=== PATIENT | female | born 1935 | race Two or more races ===

== ENCOUNTER 2021-07-17 12:02 | Inpatient (IN) | payer MEDICARE, BC ==
--- NOTE | 2021-07-17 12:29 | ED ---
General Adult HPI - General Stated complaint: fall Time Seen by Provider: 07/17/21 12:03 Source: patient, EMS, RN notes reviewed Mode of arrival: EMS Limitations: physical limitation - History of Present Illness Initial comments: This an 86-year-old female presents emergency Department chief complaint of a fall. She mechanical fall. Patient states that she fell onto her left side complains of left shoulder pain, left hip pain. Patient states she had no head injury no loss conscious. Patient denies any blood thinners. Patient states that she has had bilateral knee surgery, right hip surgery she states her surgery was performed here at [facility]. Patient cannot remember the surgeon. - Related Data Allergies Allergy/AdvReac Type Severity Reaction Status Date / Time No Known Allergies Allergy Verified 07/17/21 13:10 Review of Systems ROS Statement: Those systems with pertinent positive or pertinent negative responses have been documented in the HPI. ROS Other: All systems not noted in ROS Statement are negative. Past Medical History Past Medical History: Osteoarthritis (OA) History of Any Multi-Drug Resistant Organisms: None Reported Additional Past Surgical History / Comment(s): RT Hip, bilateral knee replacement, LT breast removal Past Psychological History: No Psychological Hx Reported Smoking Status: Never smoker Past Alcohol Use History: None Reported Past Drug Use History: None Reported General Exam Limitations: physical limitation General appearance: alert, in no apparent distress Head exam: Present: atraumatic, normocephalic, normal inspection Eye exam: Present: normal appearance, PERRL, EOMI. Absent: scleral icterus, conjunctival injection, periorbital swelling Neck exam: Present: normal inspection, full ROM. Absent: tenderness, meningismus Respiratory exam: Present: normal lung sounds bilaterally. Absent: respiratory distress, wheezes, rales, rhonchi, stridor Cardiovascular Exam: Present: regular rate, normal rhythm, normal heart sounds. Absent: systolic murmur, diastolic murmur, rubs, gallop, clicks GI/Abdominal exam: Present: soft, normal bowel sounds. Absent: distended, tenderness, guarding, rebound, rigid Extremities exam: Present: other (Left shoulder tenderness with palpation, patient is in a shoulder sling, arm is neurovascularly intact, right upper extremity on markable. Right hip unremarkable left hip is shortened, mildly rotated, tenderness with palpation.) Neurological exam: Present: alert, oriented X3, reflexes normal. Absent: motor sensory deficit Skin exam: Present: warm, dry, intact, normal color. Absent: rash Course Vital Signs 07/17/21 07/17/21 12:12 13:24 Temperature 97.6 F Pulse Rate 68 76 Respiratory 16 16 Rate Blood Pressure 154/73 129/65 O2 Sat by Pulse 94 L 96 Oximetry Medical Decision Making - Medical Decision Making I did discuss case with Dr. Roberson on-call for orthopedics updated on evidence of hip fracture, left humerus fracture and concerns for metastatic cancer. He did recommend the patient be admitted to medicine given most likely metastatic c ancer and requiring long-term treatment. - Lab Data Result diagrams: 07/17/21 12:34 07/17/21 12:34 Lab Results 07/17/21 07/17/21 07/17/21 Range/Units 12:34 12:34 12:34 WBC 3.7 L (3.8-10.6) k/uL RBC 4.21 (3.80-5.40) m/uL Hgb 12.1 (11.4-16.0) gm/dL Hct 38.4 (34.0-46.0) % MCV 91.2 (80.0-100.0) fL MCH 28.7 (25.0-35.0) pg MCHC 31.4 (31.0-37.0) g/dL RDW 13.5 (11.5-15.5) % Plt Count 197 (150-450) k/uL MPV 7.7 Neutrophils % 70 % Lymphocytes % 19 % Monocytes % 7 % Eosinophils % 1 % Basophils % 1 % Neutrophils # 2.6 (1.3-7.7) k/uL Lymphocytes # 0.7 L (1.0-4.8) k/uL Monocytes # 0.3 (0-1.0) k/uL Eosinophils # 0.1 (0-0.7) k/uL Basophils # 0.0 (0-0.2) k/uL PT 9.6 (9.0-12.0) sec INR 0.9 (<1.2) APTT 23.2 (22.0-30.0) sec Sodium 138 (137-145) mmol/L Potassium 3.9 (3.5-5.1) mmol/L Chloride 103 (98-107) mmol/L Carbon Dioxide 25 (22-30) mmol/L Anion Gap 10 mmol/L BUN 23 H (7-17) mg/dL Creatinine 0.72 (0.52-1.04) mg/dL Est GFR (CKD-EPI)AfAm 87 (>60 ml/min/1.73 sqM) Est GFR (CKD-EPI)NonAf 76 (>60 ml/min/1.73 sqM) Glucose 162 H (74-99) mg/dL Calcium 9.0 (8.4-10.2) mg/dL Total Bilirubin 0.4 (0.2-1.3) mg/dL AST 44 H (14-36) U/L ALT 16 (4-34) U/L Alkaline Phosphatase 124 (38-126) U/L Total Protein 7.8 (6.3-8.2) g/dL Albumin 4.0 (3.5-5.0) g/dL Disposition Clinical Impression: Fall, Fracture of femoral neck, left, Closed fracture of left proximal humerus, Metastatic cancer Disposition: ADMITTED IP TO THIS [facility] Referrals: Elizabeth Yap DO [Primary Care Provider] - 1-2 days Time of Disposition: 13:40
[2021-07-17 12:46] LABS: Basophils % (A) 1 %; Eosinophils # (A) 0.1 k/uL (0-0.7); Eosinophils % (A) 1 %; HCT 38.4 % (34.0-46.0); HGB 12.1 gm/dL (11.4-16.0); Lymphocytes # (A) 0.7 k/uL (1.0-4.8); Lymphocytes % (A) 19 %; MCH 28.7 pg (25.0-35.0); MCHC 31.4 g/dL (31.0-37.0); MCV 91.2 fL (80.0-100.0); Mean Platelet Volume 7.7; Monocytes # (A) 0.3 k/uL (0-1.0); Monocytes % (A) 7 %; Neutrophils # (A) 2.6 k/uL (1.3-7.7); Neutrophils % (A) 70 %; Platelet Count 197 k/uL (150-450); RBC 4.21 m/uL (3.80-5.40); RDW 13.5 % (11.5-15.5); WBC 3.7 k/uL (3.8-10.6)
[2021-07-17 13:00] LABS: INR 0.9 (<1.2); Partial Thromboplastin Time 23.2 sec (22.0-30.0); Prothrombin Time 9.6 sec (9.0-12.0)
[2021-07-17 13:01] LABS: Potassium 3.9 mmol/L (3.5-5.1); Total Bilirubin 0.4 mg/dL (0.2-1.3); Total Protein 7.8 g/dL (6.3-8.2)
[2021-07-17] MEDS ORDERED: ONDANSETRON 4 MG/2 ML VIAL IVP STA (13:08)
[2021-07-17] MEDS ORDERED: fentaNYL (PF) 50 MCG/ML 2 ML AMP IVP ONE ×2 (13:08→13:15)
--- NOTE | 2021-07-17 13:11 | XR ---
EXAMINATION TYPE: XR shoulder limited LT DATE OF EXAM: 07/17/2021 CLINICAL HISTORY: Pain from fall. TECHNIQUE: Three views of the left shoulder are obtained. COMPARISON: None. FINDINGS: Osseous structures are demineralized which is noted to the radiographic sensitivity. There is age-indeterminate suspected acute or subacute comminuted slightly displaced fracture through surgi vaibhav neck left proximal humerus. There is high riding humeral head consistent with chronic rotator cuf f tear. There is sclerosis and subchondral cystic change in the acromion with deformity of the supero lateral humeral head suggesting old trauma or Bankart type lesion or avascular necrosis. Severe narro wing of the glenohumeral joint is present. Visualized lungs show suspicious increased nodular opaciti es. IMPRESSION: As above. Probable acute comminuted slightly displaced and impacted fracture surgical nec k left proximal humerus
--- NOTE | 2021-07-17 13:13 | XR ---
EXAMINATION TYPE: XR chest 1V DATE OF EXAM: 07/17/2021 COMPARISON: NONE HISTORY: Pain after fall injury. TECHNIQUE: Single frontal supine view of the chest is obtained. FINDINGS: Multiple small bilateral nodules are present greatest in the periphery. No suspicious foca l airspace opacity, pleural effusion, or pneumothorax seen. Cardiac silhouette size upper limits of n ormal. Advanced degenerative changes bilateral glenohumeral joints. Rounded densities in the left upp er quadrant of uncertain etiology. Underlying scoliosis is present. IMPRESSION: Diffuse pulmonary metastatic disease. No acute pulmonary process.
--- NOTE | 2021-07-17 13:15 | XR ---
EXAMINATION TYPE: XR Hip LT and AP Pelvis DATE OF EXAM: 07/17/2021 COMPARISON: NONE HISTORY: Pain after fall injury. TECHNIQUE: A single AP view of the pelvis is obtained. Two views of the left hip are obtained. FINDINGS: There is acute slightly displaced transcervical fracture through femoral neck left proximal femur. No hip joint dislocation. Moderate axial joint space loss. Osseous structures are demineralized. Metallic hardware from right hip surgery is partially imaged. T here are old healed fractures of the bilateral superior and inferior pelvic rami. Pubic symphysis is narrowed. Sacroiliac joints grossly preserved. Phleboliths and bilateral vascular calcification in th e pelvis extending into bilateral groin region is seen. IMPRESSION: There is acute slightly displaced and impacted transcervical fracture femoral neck level left proximal femur.
[2021-07-17] MEDS ORDERED: NALOXONE 0.4 MG/ML 1 ML VIAL IV PRN (13:52)
[2021-07-17 14:26] LABS: Appearance,Urine Clear (Clear); Bacteria,Urine Rare /hpf; Bilirubin,Urine Negative (Negative); Blood,Urine Negative (Negative); Color,Urine Light Yellow; Glucose,Urine (UA) Negative (Negative); Hyaline Casts,Urine 1 /lpf (0-2); Ketones,Urine 1+ (Negative); Leukocyte Esterase,Urine Moderate (Negative); Mucus,Urine Rare /hpf; Nitrite,Urine Negative (Negative); Protein,Urine Trace (Negative); RBC,Urine 4 /hpf (0-5); Specific Gravity,Urine 1.012 (1.001-1.035); Squamous Epithelial Cell,Urine <1 /hpf (0-4); Urobilinogen,Urine <2.0 mg/dL (<2.0); WBC,Urine 6 /hpf (0-5)
[2021-07-17] MEDS: HYDROmorphone 0.5 MG/0.5 ML SYRINGE IVP PRN ×2 (15:47→23:52)
[2021-07-17] MEDS ORDERED: HYDROcodone/APAP 5-325MG 1 EACH TAB PO PRN (16:45)
--- NOTE | 2021-07-17 17:17 | HP ---
HISTORY AND PHYSICAL CHIEF COMPLAINTS: Fall and fracture. HISTORY OF PRESENT ILLNESS: This 86-year-old woman with a past medical history of DJD and history of rheumatoid arthritis was walking, and the patient lost her balance. She apparently had a fall and had a left hip femur fracture as well as a left humerus fracture. She was admitted for evaluation and treatment. The patient apparently was complaining of left hip pain for past several days. Patient also has significant rheumatoid arthritis with deformities. The chest x-ray showed bilateral nodules suggestive of possible malignancy versus rheumatoid arthritis. There is no history of any fever, rigor or chills. The patient had some vomiting after pain medications. PAST MEDICAL HISTORY: Rheumatoid arthritis, DJD, history of breast cancer. MEDICATIONS: Home medications are reviewed and include zinc. Doses and the rest of the medications are reviewed. ALLERGIES: NONE. FAMILY HISTORY: No history of heart disease or strokes in the family. SOCIAL HISTORY: No history of smoking. No history of alcohol intake. REVIEW OF SYSTEMS: Fourteen-point review of systems negative except as mentioned earlier. PHYSICAL EXAMINATION: Pulse is 80, blood pressure 131/60, respirations 16, pulse ox 94% on room air. HEENT: Conjunctivae normal. NECK: No jugular venous distention. CARDIOVASCULAR: S1, S2 muffled. RESPIRATION: Breath sounds diminished at the bases. A few scattered rhonchi and crackles. ABDOMEN: Soft, nontender. LEGS: Status post fracture on the left side. NERVOUS SYSTEM: No focal deficit except for the pain caused by fractures. SKIN: No ulcer, rash, bleeding. JOINTS: No active deforming arthropathy. LABS: Reviewed. WBC 3.7. ASSESSMENT: 1. Fall and fracture of the left humerus and femur. 2. Bilateral nodules on the chest x-ray, possibly metastatic, possibly rheumatoid. 3. History of rheumatoid arthritis deformities. 4. Degenerative joint disease. 5. History of breast cancer. RECOMMENDATIONS AND DISCUSSION: In this 86-year-old woman who presented with multiple complex medical issues, we will monitor the patient closely. Pain management. Symptomatic treatment for vomiting. I would also recommend a D-dimer; and if the D-dimer is positive, I would recommend a CT angio of the chest. Otherwise, we will perform CT chest without any contrast and also obtain a hematology/oncology evaluation. I also recommend testing for KYA as well as rheumatoid factor and sedimentation rate. Overall prognosis is guarded because of multiple complex medical issues. Discussed with the family at the bedside. Further recommendations to follow. The patient will be cleared for surgery with some extra risk if needed. The patient is saturating normally. I would also recommend an EKG and troponin to complete the workup at this time. Further recommendations to follow. DONAVAN / MARION: [id number] /
[2021-07-17] MEDS: PANTOPRAZOLE 40 MG/10 ML VIAL IVP SCH (17:38)
--- NOTE | 2021-07-17 21:18 | CT ---
EXAMINATION TYPE: CT chest angio for PE CT DLP: 244.8 mGycm, Automated exposure control for dose reduction was used. DATE OF EXAM: 07/17/2021 9:00 PM COMPARISON: Chest radiograph from same day. CLINICAL INDICATION:Female, 86 years old with history of positive d dimer; elevated D-DIMER. TECHNIQUE/CONTRAST: CTA scan of the thorax is performed with IV Contrast, patient injected with 80ml mL of Isovue 370, pu lmonary embolism protocol. MIP images are created and reviewed. FINDINGS: Pulmonary Artery: There is no evidence for a filling defect within the pulmonary vasculature to sugge st acute pulmonary embolism. The pulmonary artery is of normal size. Lungs/Pleura: Diffuse pulmonary metastatic disease with innumerable nodules seen throughout the lungs Airway: Large airways are patent. Heart: Heart is within normal limits for size.. Vasculature: Mediastinum: No gross evidence of adenopathy. Musculoskeletal: No acute osseous abnormalities Soft Tissues: Multiple enlarged right axillary lymph nodes measuring up to 16 mm are present. Right b reast mass measuring 35 x 2.2 cm. Right internal mammary lymph node measuring 4 mm in short axis. The left breast is absent. Lower neck: No significant findings. 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 Additiona l smaller peripherally calcified aneurysms also possible but suboptimally evaluated measuring 7 and 7 mm. This is suboptimally evaluated given motion. Multiple gallstones are seen within the gallbladder lumen. There are 2 bilateral renal arteries. IMPRESSION: 1. No evidence of pulmonary embolism. 2. Right breast mass, right axilla lymphadenopathy, right internal mammary chain lymph nodes, diffuse pulmonary nodules concerning for primary breast malignancy with metastatic disease. Correlation with mammography at outside institutions and tissue sampling is recommended. 3. Splenic artery aneurysm with peripheral calcification which are selectively evaluated on this exam due to motion. Largest measuring up to [id number] x 12 mm.
[2021-07-17] MEDS: ONDANSETRON 4 MG/2 ML VIAL IVP PRN (21:28)
[2021-07-17] MEDS: HEPARIN SODIUM,PORCINE/PF 5,000 UNIT/0.5 ML SYRINGE SQ SCH (21:28)
[2021-07-17] MEDS ORDERED: TEMAZEPAM 15 MG CAP PO PRN (22:33)
[2021-07-18] MEDS: HYDROmorphone 0.5 MG/0.5 ML SYRINGE IVP PRN ×3 (04:52→13:48)
[2021-07-18] MEDS: HEPARIN SODIUM,PORCINE/PF 5,000 UNIT/0.5 ML SYRINGE SQ SCH ×2 (08:19→19:28)
[2021-07-18 09:15] LABS: Basophils # (A) 0.03 X 10*3/uL (0.00-0.10); Basophils % (A) 0.9 %; Eosinophils # (A) 0.02 X 10*3/uL (0.04-0.35); Eosinophils % (A) 0.6 %; HCT 36.6 % (37.2-46.3); HGB 11.3 g/dL (12.0-15.0); Immature Grans, Automated 0.3 %; Lymphocytes # (A) 1.33 X 10*3/uL (0.90-5.00); Lymphocytes % (A) 39.9 %; MCH 27.8 pg (27.0-32.0); MCHC 30.9 g/dL (32.0-37.0); MCV 90.1 fL (80.0-97.0); Monocytes # (A) 0.68 X 10*3/uL (0.20-1.00); Monocytes % (A) 20.4 %; NRBC Per 100 WBC 0 /100 WBCS (0.0-0.0); Neutrophils # (A) 1.26 X 10*3/uL (1.80-7.70); Neutrophils % (A) 37.9 %; Platelet Count 182 X 10*3/uL (140-440); RBC 4.06 X 10*6/uL (4.10-5.20); RDW 13.4 % (11.5-14.5); WBC 3.33 X 10*3/uL (4.50-10.00)
[2021-07-18 09:32] LABS: African American GFR (CKD) 76.3 (60.0-200.0); Albumin 3.6 g/dL (3.8-4.9); Albumin/Globulin Ratio 1.09 (1.60-3.17); Anion Gap 12.4 mmol/L (10.00-18.00); BUN/Creat Ratio 27.63 Ratio (12.00-20.00); Blood Urea Nitrogen 22.1 mg/dL (9.0-27.0); Calcium 9.2 mg/dL (8.7-10.3); Carbon Dioxide 24.6 mmol/L (20.0-27.5); Globulin 3.3 g/dL (1.6-3.3); Non-African American GFR(CKD) 65.8 (60.0-200.0); Potassium 4.4 mmol/L (3.5-5.5); Total Bilirubin 0.3 mg/dL (0.30-1.20); Total Protein 6.9 g/dL (6.2-8.2)
--- NOTE | 2021-07-18 11:09 | P.CNOR ---
History of Present Illness - HPI Consult date: 07/18/21 History of present illness: This is an 86-year-old female who is admitted after a fall. Patient's past medical history is significant for breast cancer and rheumatoid arthritis. Patient is seen and evaluated at bedside today. Patient states that she has had left hip pain for the last several days and normally ambulates with a walker. P eamon states that on 07/17/2021 she was walking a short distance in her house without a walker when her left hip gave out and she fell. X-rays in the emergency room revealed left hip fracture and left proximal humerus fracture. Patient states that her pain is well controlled this morning. Patient denies any fever/chills, numbness, weakness, tingling, abdominal pain, shortness of breath or chest pain. Review of Systems See HPI. Past Medical History Past Medical History: Osteoarthritis (OA) History of Any Multi-Drug Resistant Organisms: None Reported Additional Past Surgical History / Comment(s): RT Hip, bilateral knee replacement, LT breast removal Past Psychological History: No Psychological Hx Reported Smoking Status: Never smoker Past Alcohol Use History: None Reported Past Drug Use History: None Reported Medications and Allergies Home Medications Medication Instructions Recorded Confirmed Type Ascorbic Acid [Vitamin C] 1,000 mg PO DAILY 07/17/21 07/17/21 History Cholecalciferol (Vitamin D3) 75 mcg PO DAILY 07/17/21 07/17/21 History [Vitamin D3 (3000 Iu)] Turmeric Root Extract [Turmeric] 500 mg PO DAILY 07/17/21 07/17/21 History Zinc 50 mg PO DAILY 07/17/21 07/17/21 History Allergies Allergy/AdvReac Type Severity Reaction Status Date / Time No Known Allergies Allergy Verified 07/17/21 14:21 Physical Examination On exam patient is resting comfortably in bed in no acute distress. Patient is alert and oriented 3. Exam of the left upper extremity: There is tenderness to palpation over the left shoulder. There is mild swelling. Skin is intact. The left upper extremity is warm and well perfused. Sensation intact. Radial pulse is 2+. Neurovascular status and circulatory status are intact. Exam of the left lower extremity: There is tenderness to palpation over the left hip. Limited range of motion of the left hip secondary to pain. There is minimal soft tissue swelling. Skin is intact. Calf is soft and nontender to palpation. Dorsalis pedis pulse is 2+. Sensation intact. Neurovascular status and circulatory status are intact. Exams of the right upper extremity and right lower extremity are within normal limits. Results X-rays of the left shoulder dated 07/17/2021 reveal a comminuted fracture of the left proximal humerus. X-rays of the left hip and pelvis dated 07/17/2021 reveal a left femoral neck fracture. A chest CTA reveals a right breast mass, right axilla lymphadenopathy, right internal mammary chain lymph nodes, diffuse pulmonary nodules concerning for primary breast malignancy with metastatic disease. Correlation with mammography at outside institutions and tissue sampling is recommended. - Labs Labs: Abnormal Lab Results - Last 24 Hours (Table) 07/17/21 07/17/21 07/17/21 Range/Units 12:34 12:34 14:05 WBC 3.7 L (3.8-10.6) k/uL RBC (4.10-5.20) X 10*6/uL Hgb (12.0-15.0) g/dL Hct (37.2-46.3) % MCHC (32.0-37.0) g/dL Neutrophils # (1.80-7.70) X 10*3/uL Lymphocytes # 0.7 L (1.0-4.8) k/uL Eosinophils # (0.04-0.35) X 10*3/uL ESR (0-20) mm/hr D-Dimer (<0.60) mg/L FEU BUN 23 H (7-17) mg/dL BUN/Creatinine Ratio (12.00-20.00) Ratio Glucose 162 H (74-99) mg/dL AST 44 H (14-36) U/L Albumin (3.8-4.9) g/dL Albumin/Globulin Ratio (1.60-3.17) g/dL Urine Protein Trace H (Negative) Urine Ketones 1+ H (Negative) Ur Leukocyte Esterase Moderate H (Negative) Urine WBC 6 H (0-5) /hpf Urine Bacteria Rare H (None) /hpf Urine Mucus Rare H (None) /hpf 07/17/21 07/17/21 07/18/21 Range/Units 16:58 16:58 05:42 WBC 3.33 L (3.8-10.6) k/uL RBC 4.06 L (4.10-5.20) X 10*6/uL Hgb 11.3 L (12.0-15.0) g/dL Hct 36.6 L (37.2-46.3) % MCHC 30.9 L (32.0-37.0) g/dL Neutrophils # 1.26 L (1.80-7.70) X 10*3/uL Lymphocytes # (1.0-4.8) k/uL Eosinophils # 0.02 L (0.04-0.35) X 10*3/uL ESR 72 H (0-20) mm/hr D-Dimer 30.14 H (<0.60) mg/L FEU BUN (7-17) mg/dL BUN/Creatinine Ratio (12.00-20.00) Ratio Glucose (74-99) mg/dL AST (14-36) U/L Albumin (3.8-4.9) g/dL Albumin/Globulin Ratio (1.60-3.17) g/dL Urine Protein (Negative) Urine Ketones (Negative) Ur Leukocyte Esterase (Negative) Urine WBC (0-5) /hpf Urine Bacteria (None) /hpf Urine Mucus (None) /hpf 07/18/21 Range/Units 05:42 WBC (3.8-10.6) k/uL RBC (4.10-5.20) X 10*6/uL Hgb (12.0-15.0) g/dL Hct (37.2-46.3) % MCHC (32.0-37.0) g/dL Neutrophils # (1.80-7.70) X 10*3/uL Lymphocytes # (1.0-4.8) k/uL Eosinophils # (0.04-0.35) X 10*3/uL ESR (0-20) mm/hr D-Dimer (<0.60) mg/L FEU BUN (7-17) mg/dL BUN/Creatinine Ratio 27.63 H (12.00-20.00) Ratio Glucose (74-99) mg/dL AST 36 H (14-36) U/L Albumin 3.6 L (3.8-4.9) g/dL Albumin/Globulin Ratio 1.09 L (1.60-3.17) g/dL Urine Protein (Negative) Urine Ketones (Negative) Ur Leukocyte Esterase (Negative) Urine WBC (0-5) /hpf Urine Bacteria (None) /hpf Urine Mucus (None) /hpf H & H 07/17/21 07/18/21 Range/Units 12:34 05:42 Hgb 12.1 11.3 L (11.4-16.0) gm/dL Hct 38.4 36.6 L (34.0-46.0) % Coagulation 07/17/21 Range/Units 12:34 INR 0.9 (<1.2) Result Diagrams: 07/18/21 05:42 07/18/21 05:42 Assessment and Plan Assessment: History of breast cancer with possible metastatic disease versus rheumatoid arthritis. (1) Closed fracture of left proximal humerus Current Visit: Yes Status: Acute Code(s): S42.202A - UNSP FRACTURE OF UPPER END OF LEFT HUMERUS, INIT FOR CLOS FX SNOMED Code(s): 90947699 (2) Fall Current Visit: Yes Status: Acute Code(s): W19.XXXA - UNSPECIFIED FALL, INITIAL ENCOUNTER SNOMED Code(s): 7249225 (3) Fracture of femoral neck, left Current Visit: Yes Status: Acute Code(s): S72.002A - FRACTURE OF UNSP PART OF NECK OF LEFT FEMUR, INIT SNOMED Code(s): 6211626 Plan: 1. Patient is NPO today. 2. X-rays are reviewed revealing a left femoral neck fracture. Options are discussed with the patient at bedside today. Planning for left hip hemiarthroplasty later today pending medical clearance and patient consent. 3. Recommend an arm sling to the left upper extremity when the patient is out of bed. No surgical intervention planned for the left shoulder. 4. Appreciate input from internal medicine and heme/onc.
[2021-07-18] MEDS: PANTOPRAZOLE 40 MG/10 ML VIAL IVP SCH (12:17)
--- NOTE | 2021-07-18 12:30 | P.CONS ---
History of Present Illness - Reason for Consult Consult date: 07/18/21 Concern of malignancy Requesting physician: Juan Alberto Brambila - History of Present Illness Patient is an 86 year old female presenting with fracture to femur, during work- up was found to have breast mass and axilla adenopathy concerning for metastatic disease this was on right side. Last year se underwent mastectomy for breast cancer of the left breast. Orthopedics is following and planning for stabilizarion if this felt to be pathological fracture (xray did not show suggestions of this) will ask for tissue biopsy to be obtained. If unable and patient would like to explore what treatment options are present then axilla or breast mass biopsy will be performed and breast cancer markers ran. Review of Systems All systems: negative Constitutional: Reports as per HPI Past Medical History Past Medical History: Osteoarthritis (OA) History of Any Multi-Drug Resistant Organisms: None Reported Additional Past Surgical History / Comment(s): RT Hip, bilateral knee replacement, LT breast removal Past Psychological History: No Psychological Hx Reported Smoking Status: Never smoker Past Alcohol Use History: None Reported Past Drug Use History: None Reported Medications and Allergies Home Medications Medication Instructions Recorded Confirmed Type Ascorbic Acid [Vitamin C] 1,000 mg PO DAILY 07/17/21 07/17/21 History Cholecalciferol (Vitamin D3) 75 mcg PO DAILY 07/17/21 07/17/21 History [Vitamin D3 (3000 Iu)] Turmeric Root Extract [Turmeric] 500 mg PO DAILY 07/17/21 07/17/21 History Zinc 50 mg PO DAILY 07/17/21 07/17/21 History Allergies Allergy/AdvReac Type Severity Reaction Status Date / Time No Known Allergies Allergy Verified 07/17/21 14:21 Physical Exam Vitals: Vital Signs Temp Pulse Pulse Resp BP BP Pulse Ox 07/18/21 06:50 98.5 F 63 17 117/54 90 L 07/18/21 02:00 98.2 F 60 16 127/60 90 L 07/17/21 20:35 98.5 F 65 18 123/51 91 L 07/17/21 19:30 98.2 F 69 16 120/59 95 07/17/21 17:38 86 18 131/61 07/17/21 15:55 80 16 113/75 95 07/17/21 14:52 80 16 131/61 94 L 07/17/21 13:24 76 16 129/65 96 Intake and Output 07/17/21 07/18/21 07/18/21 22:59 06:59 14:59 Output Total 500 Balance -500 Output: Urine 500 Other: Voiding Method Indwelling Catheter # Bowel Movements 0 Weight 52.163 kg - Constitutional General appearance: cooperative - EENT ENT: hard of hearing, NA/AT - Neck Neck: lymphadenopathy, normal ROM - Respiratory Respiratory: bilateral: diminished - Cardiovascular Rhythm: regularly irregular - Gastrointestinal General gastrointestinal: soft - Integumentary Integumentary: pale - Musculoskeletal Fracture left hip - Psychiatric Psychiatric: A&O x's 3 Results CBC & Chem 7: 07/19/21 05:42 07/18/21 05:42 Labs: Abnormal Lab Results - Last 24 Hours (Table) 07/17/21 07/17/21 07/17/21 Range/Units 12:34 12:34 14:05 WBC 3.7 L (3.8-10.6) k/uL RBC (4.10-5.20) X 10*6/uL Hgb (12.0-15.0) g/dL Hct (37.2-46.3) % MCHC (32.0-37.0) g/dL Neutrophils # (1.80-7.70) X 10*3/uL Lymphocytes # 0.7 L (1.0-4.8) k/uL Eosinophils # (0.04-0.35) X 10*3/uL ESR (0-20) mm/hr D-Dimer (<0.60) mg/L FEU BUN 23 H (7-17) mg/dL BUN/Creatinine Ratio (12.00-20.00) Ratio Glucose 162 H (74-99) mg/dL AST 44 H (14-36) U/L Albumin (3.8-4.9) g/dL Albumin/Globulin Ratio (1.60-3.17) g/dL Urine Protein Trace H (Negative) Urine Ketones 1+ H (Negative) Ur Leukocyte Esterase Moderate H (Negative) Urine WBC 6 H (0-5) /hpf Urine Bacteria Rare H (None) /hpf Urine Mucus Rare H (None) /hpf 07/17/21 07/17/21 07/18/21 Range/Units 16:58 16:58 05:42 WBC 3.33 L (3.8-10.6) k/uL RBC 4.06 L (4.10-5.20) X 10*6/uL Hgb 11.3 L (12.0-15.0) g/dL Hct 36.6 L (37.2-46.3) % MCHC 30.9 L (32.0-37.0) g/dL Neutrophils # 1.26 L (1.80-7.70) X 10*3/uL Lymphocytes # (1.0-4.8) k/uL Eosinophils # 0.02 L (0.04-0.35) X 10*3/uL ESR 72 H (0-20) mm/hr D-Dimer 30.14 H (<0.60) mg/L FEU BUN (7-17) mg/dL BUN/Creatinine Ratio (12.00-20.00) Ratio Glucose (74-99) mg/dL AST (14-36) U/L Albumin (3.8-4.9) g/dL Albumin/Globulin Ratio (1.60-3.17) g/dL Urine Protein (Negative) Urine Ketones (Negative) Ur Leukocyte Esterase (Negative) Urine WBC (0-5) /hpf Urine Bacteria (None) /hpf Urine Mucus (None) /hpf 07/18/21 Range/Units 05:42 WBC (3.8-10.6) k/uL RBC (4.10-5.20) X 10*6/uL Hgb (12.0-15.0) g/dL Hct (37.2-46.3) % MCHC (32.0-37.0) g/dL Neutrophils # (1.80-7.70) X 10*3/uL Lymphocytes # (1.0-4.8) k/uL Eosinophils # (0.04-0.35) X 10*3/uL ESR (0-20) mm/hr D-Dimer (<0.60) mg/L FEU BUN (7-17) mg/dL BUN/Creatinine Ratio 27.63 H (12.00-20.00) Ratio Glucose (74-99) mg/dL AST 36 H (14-36) U/L Albumin 3.6 L (3.8-4.9) g/dL Albumin/Globulin Ratio 1.09 L (1.60-3.17) g/dL Urine Protein (Negative) Urine Ketones (Negative) Ur Leukocyte Esterase (Negative) Urine WBC (0-5) /hpf Urine Bacteria (None) /hpf Urine Mucus (None) /hpf CT scan - chest: report reviewed Assessment and Plan (1) Fracture of femoral neck, left Current Visit: Yes Status: Acute Code(s): S72.002A - FRACTURE OF UNSP PART OF NECK OF LEFT FEMUR, INIT SNOMED Code(s): 8202947 (2) Mass of right breast Narrative/Plan: Prominent mass with rt axillary adenopathy, highly s/o breast ca. More likely new primary, and likely source if lung findings indicate metastatic disease. D/w pt and family in detail. She does not want any chemo or RT. I discussed doing hormonal manipulation, which is generally well tolerated, if the tumor is ER/RI +ve. To confirm the same, she would need a biopsy. At this time she is undecided and would like to get through the L hip surgery 1st. We will ask ORtho to send a sample for pathology. If this shows malignancy, then breast biopsy may not be required. If this is negative, she will consider breast biopsy Current Visit: Yes Status: Acute Code(s): N63.10 - UNSPECIFIED LUMP IN THE RIGHT BREAST, UNSPECIFIED QUADRANT SNOMED Code(s): 43638620 Plan: Tisue biopsy whether from ortho surgery if felt to be pathological and/or Left breast mass/Axilla for receptors Breast cancer markers will be ran bone scan needed and further imaging for full staging Dr. Alonso: I have completed the full history and physical and developed the above impression and plan, agree with dictation, dictated as a scribe.ri Dr. Garcia had a long discussion with patient and daughters.
[2021-07-18] MEDS: ONDANSETRON 4 MG/2 ML VIAL IVP PRN (14:52)
[2021-07-18] MEDS ORDERED: NALOXONE 0.4 MG/ML 1 ML VIAL IV PRN (16:57)
[2021-07-18] MEDS ORDERED: MAGNESIUM HYDROXIDE 2,400 MG/10 ML CUP PO PRN (16:57)
--- NOTE | 2021-07-18 17:32 | PN ---
PROGRESS NOTE DATE OF SERVICE: 07/18/2021 This 86-year-old woman who was admitted with a fall and closed fracture of the left proximal humerus is scheduled to undergo intramedullary fixation today. The patient also had a fracture of the femoral neck, which is being treated conservatively at this time. The patient also has a history of breast cancer. Multiple lung nodules are noted in the right breast also noted. Hematology/Oncology is also being consulted. The patient is having severe pain. Past medical history reviewed. REVIEW OF SYSTEMS: Fourteen-point review of systems negative except as mentioned earlier. CURRENT MEDICATIONS: Current medications were reviewed at length, which include heparin, Dilaudid and the rest of the medications. PHYSICAL EXAMINATION: Pulse is 60, blood pressure 126/60, respirations 16, temperature 98.2. HEENT: Conjunctivae normal. NECK: No jugular venous distention. CARDIOVASCULAR: S1, S2 muffled. RESPIRATION: A few scattered rhonchi. Right breast mass. LEGS: No edema. No swelling. Left leg painful. NERVOUS SYSTEM: No focal deficit. SKIN: No ulcer, rash, bleeding. JOINTS: As mentioned earlier. LABS: Reviewed. WBC 8.3, hemoglobin 11.3. KYA is negative and rheumatoid factor is 15. ASSESSMENT: 1. Fall and fracture of the left humerus and left femur for intramedullary nailing. 2. Bilateral lung nodules on chest x-ray; possibly metastatic malignancy with a right breast mass. 3. History rheumatoid arthritis deformities. 4. Degenerative joint disease. 5. History of breast cancer. RECOMMENDATIONS AND DISCUSSION: I recommend to continue current medications, continue with the monitoring, symptomatic treatment. Pain management. Closely follow with Hematology/Oncology as well as Orthopedic Surgery. Will monitor closely. Ensure oxygenation. Overall prognosis is guarded, which I discussed at length with the patient and the patient's family at the bedside. Further recommendations to follow. Please see orders for further details. MMODL / IJN: [id number] /
[2021-07-18] MEDS: SODIUM CHLORIDE 0.9% 1,000 ML IV SCH (18:14)
[2021-07-18] MEDS ORDERED: SODIUM CHLORIDE 0.9% 1,000 ML IV ONE (20:32)
[2021-07-18] MEDS ORDERED: SODIUM CHLORIDE 0.9% 100 ML with ceFAZolin 2 GM IV ONE ×2 (20:40)
--- NOTE | 2021-07-18 21:25 | P.OP ---
Date of Procedure: 07/18/21 Preoperative Diagnosis: Subcapital fracture left hip Postoperative Diagnosis: Subcapital fracture left hip Procedure(s) Performed: Hemiarthroplasty left hip Implants: Chang and nephew Polarstem size 3 standard collared Chang & Nephew tandem unipolar, 43 mm Chang & Nephew tandem unipolar 12/14 taper sleeve, -3 mm All components were press-fit. Anesthesia: spinal Surgeon: Juan Alberto Roberson Paster Hat Lining #1: Orquidea Sampson Estimated Blood Loss (ml): 50 Pathology: other (Femoral head and reamings) Condition: stable Disposition: PACU Indications for Procedure: This is an 86-year-old female that fell at home and sustained a subcapital fracture of her left hip. After discussing the surgical nonsurgical treatment options with her and her family at length, I recommended a left hip hemiarthroplasty and informed consent was obtained. Operative Findings: The operative findings are consistent with a left hip subcapital fracture Description of Procedure: Patient was seen and evaluated in the preoperative area, consent was reviewed and the operative site was marked with a skin marker. Patient was then brought to the operating room and given 2 g of Ancef intravenously. A spinal anesthetic was administered by the anesthesia department. Patient was then placed in a lateral decubitus position and held with a Montral hip positioner. The bony prominences were well-padded and an axillary roll was placed. The hip was then prepped and draped in the usual sterile fashion. A universal timeout was then performed which confirmed the patient's name, surgical site, ALLERGIES, and procedure. A standard anterolateral approach the hip was performed. Skin and subcutaneous tissues were sharply incised with an incision centered over the tip of the greater trochanter. The incision was carefully dissected down to the fascia. The fascia was then split in line with skin incision and a Charnley retractor was gently placed. The abductors were then identified, and the anterior one third of the abductors were released off the trochanter and one large sleeve. The fracture hematoma was evacuated and the proximal femur was exposed by externally rotating the femur. The fracture site was readily visualized. Next, using an osteotomy guide, the proximal femur was osteotomized at the appropriate level of the above the lesser trochanter. This bone was then removed. On gross visualization of the bone, did not appear to be any suspicious areas for metastatic disease. The bone will be sent for pathologic diagnosis Attention was then turned to the femoral head. Using a corkscrew, the femoral head was removed from the acetabulum without incident. The acetabulum was inspected, and found to have no significant arthrosis. Femoral head was then measured. Attention was then redirected to the femur. Proximal femur was re-exposed and a box osteotome was used to lateralize the proximal femur. A almond blancher hand was then used to locate the femoral canal. Sequential broaching was then performed to the appropriate size. The calcar was then planed and trial head and neck were placed. The hip was then gently reduced. Leg lengths were checked and found to be equal. Hip was then taken through a full range of motion was stable throughout. The hip was then gently dislocated with the aid of a bone hook. The trial head and neck were then removed. The femoral broach was then inspected and found to have a secure fit. The broach was then removed. The hip was then copiously irrigated with antibiotic solution with a pulse lavage. Components were then opened and the femoral stem was then impacted into the proximal femur. The trunnion was cleaned and dried, and the femoral head and neck were then impacted. Hip was again gently reduced. Again leg lengths were checked and found to be equal, and the hip was taken through a full range of motion and found to be stable. The hip was again irrigated with pulsatile lavage, then followed by the Irrrisept solution. The abductors were then repaired through drill holes to the bone to the greater trochanter, utilizing #5 Ethibond suture. Next the fascia was repaired with #2 strata fix suture. The subcutaneous tissue was then repaired with 3-0 Vicryl. The subcuticular tissue was then repaired with 3-0 strata fix suture. Skin was then closed with Exofin skin glue. A sterile dressing was then applied and the patient was transported to the recovery room in stable condition. Paster Hat Lining NEGAR Aburto was required due to the complexity of surgery the need for skilled surgical clinical reviewer. She assisted with positioning the patient, draping the patient, retraction during the surgery, and closure of the wound.
[2021-07-18] MEDS ORDERED: LACTATED RINGERS 1,000 ML IV ONE ×2 (21:52)
[2021-07-18] MEDS ORDERED: ONDANSETRON 4 MG/2 ML VIAL IVP ONE (22:03)
[2021-07-18] MEDS ORDERED: diphenhydrAMINE 50 MG/ML 1 ML VIAL IVP ONE (22:07)
[2021-07-18] MEDS ORDERED: HYDROmorphone 0.5 MG/0.5 ML SYRINGE IVP ONE ×2 (22:08→22:21)
--- NOTE | 2021-07-18 22:18 | XR ---
EXAMINATION TYPE: XR Hip Limited LT DATE OF EXAM: 07/18/2021 COMPARISON: NONE HISTORY: Hip pain TECHNIQUE: Single view FINDINGS: There is left hip prosthesis. Components are in anatomic position. There is vascular calcif ication. No fracture seen. This probably a chip fracture of the greater trochanter. IMPRESSION: Left hip prosthesis in good position.
[2021-07-18] MEDS: SENNOSIDES-DOCUSATE SODIUM 1 EACH TAB PO SCH (23:19)
[2021-07-19] MEDS: PANTOPRAZOLE 40 MG/10 ML VIAL IVP SCH ×3 (00:14→21:03)
[2021-07-19] MEDS: KETOROLAC 15 MG/ML 1 ML VIAL IVP PRN ×2 (05:44→14:44)
[2021-07-19] MEDS: ONDANSETRON 4 MG/2 ML VIAL IVP PRN ×3 (05:45→21:04)
[2021-07-19] MEDS: HEPARIN SODIUM,PORCINE/PF 5,000 UNIT/0.5 ML SYRINGE SQ SCH ×2 (07:56→21:03)
[2021-07-19 08:39] LABS: HCT 32.7 % (37.2-46.3); HGB 10.1 g/dL (12.0-15.0); MCH 28.4 pg (27.0-32.0); MCHC 30.9 g/dL (32.0-37.0); MCV 91.9 fL (80.0-97.0); Mean Platelet Volume 10.5 fL (9.5-12.2); NRBC Per 100 WBC 0 /100 WBCS (0.0-0.0); Platelet Count 181 X 10*3/uL (140-440); RBC 3.56 X 10*6/uL (4.10-5.20); RDW 13.4 % (11.5-14.5); WBC 3.56 X 10*3/uL (4.50-10.00)
--- NOTE | 2021-07-19 09:21 | P.PN ---
Subjective Progress Note Date: 07/19/21 Principal diagnosis: Left hip fracture. Left proximal humerus fracture. Status post hemiarthroplasty left hip. This is a pleasant 78-year-old female who is postop day #1 status post hemiarthroplasty of the left hip. She has no new complaints or concerns today other than some mild nausea.. Vital signs are stable. Objective - Vital Signs Vital signs: Vital Signs Temp 98.1 F 07/19/21 07:52 Pulse 77 07/19/21 07:52 Resp 16 07/19/21 07:52 BP 105/59 07/19/21 07:52 Pulse Ox 96 07/19/21 07:52 FiO2 Intake & Output 07/18/21 07/19/21 07/19/21 18:59 06:59 18:59 Intake Total 900 Output Total 950 Balance -50 Intake: IV 900 Output: Urine 900 Estimated Blood Loss 50 Other: Voiding Method Indwelling Catheter Indwelling Catheter # Bowel Movements 0 - Exam This is a pleasant 86-year-old female in no acute distress. She is alert and oriented 3. Exam of the upper extremities reveals sling in place on the left arm. Range of motion of the shoulder not tested today. Satisfactory finger motion without difficulty or pain. Exam of the left hip reveals that her dressing is clean, dry and intact. Minimal swelling about the left hip and thigh. Full foot and ankle motion without difficulty or pain. Neurovascular status to the lower extremity is intact. - Labs CBC & Chem 7: 07/19/21 05:42 07/18/21 05:42 Labs: Abnormal Lab Results - Last 24 Hours (Table) 07/18/21 07/18/21 07/19/21 Range/Units 05:42 05:42 05:42 WBC 3.33 L 3.56 L (4.50-10.00) X 10*3/uL RBC 4.06 L 3.56 L (4.10-5.20) X 10*6/uL Hgb 11.3 L 10.1 L (12.0-15.0) g/dL Hct 36.6 L 32.7 L (37.2-46.3) % MCHC 30.9 L 30.9 L (32.0-37.0) g/dL Neutrophils # 1.26 L (1.80-7.70) X 10*3/uL Eosinophils # 0.02 L (0.04-0.35) X 10*3/uL BUN/Creatinine Ratio 27.63 H (12.00-20.00) Ratio AST 36 H (13-35) U/L Albumin 3.6 L (3.8-4.9) g/dL Albumin/Globulin Ratio 1.09 L (1.60-3.17) g/dL CA 15-3 Antigen (0.0-32.3) U/mL 07/19/21 Range/Units 05:42 WBC (4.50-10.00) X 10*3/uL RBC (4.10-5.20) X 10*6/uL Hgb (12.0-15.0) g/dL Hct (37.2-46.3) % MCHC (32.0-37.0) g/dL Neutrophils # (1.80-7.70) X 10*3/uL Eosinophils # (0.04-0.35) X 10*3/uL BUN/Creatinine Ratio (12.00-20.00) Ratio AST (13-35) U/L Albumin (3.8-4.9) g/dL Albumin/Globulin Ratio (1.60-3.17) g/dL CA 15-3 Antigen 64.1 H (0.0-32.3) U/mL Assessment and Plan (1) Status post-operative repair of closed hip fracture Current Visit: Yes Status: Acute Code(s): Z98.890 - OTHER SPECIFIED POSTPROCEDURAL STATES; Z87.81 - PERSONAL HISTORY OF (HEALED) TRAUMATIC FRACTURE SNOMED Code(s): 288061307 (2) Closed fracture of left proximal humerus Current Visit: Yes Status: Acute Code(s): S42.202A - UNSP FRACTURE OF UPPER END OF LEFT HUMERUS, INIT FOR CLOS FX SNOMED Code(s): 45980751 (3) Fall Current Visit: Yes Status: Acute Code(s): W19.XXXA - UNSPECIFIED FALL, INITIAL ENCOUNTER SNOMED Code(s): 5007836 (4) Fracture of femoral neck, left Current Visit: Yes Status: Acute Code(s): S72.002A - FRACTURE OF UNSP PART OF NECK OF LEFT FEMUR, INIT SNOMED Code(s): 9127471 Plan: The clinical findings are discussed with the patient. I have changed her pain medication to Ultram. She will begin physical therapy today. I anticipate the need for inpatient rehab, likely Wednesday.
[2021-07-19] MEDS: traMADol 50 MG TAB PO PRN (09:45)
[2021-07-19 10:41] LABS: Basophils # (A) 0.01 X 10*3/uL (0.00-0.10); Basophils % (A) 0.3 %; Eosinophils # (A) 0 X 10*3/uL (0.04-0.35); Eosinophils % (A) 0 %; Immature Grans, Automated 0.3 %; Lymphocytes # (A) 0.62 X 10*3/uL (0.90-5.00); Lymphocytes % (A) 17.4 %; Monocytes # (A) 0.56 X 10*3/uL (0.20-1.00); Monocytes % (A) 15.7 %; Neutrophils # (A) 2.36 X 10*3/uL (1.80-7.70); Neutrophils % (A) 66.3 %; RBC Morphology NORMAL
[2021-07-19] MEDS: HYDROmorphone 0.5 MG/0.5 ML SYRINGE IVP PRN ×2 (12:23→21:04)
--- NOTE | 2021-07-19 13:30 | PN ---
PROGRESS NOTE DATE OF SERVICE: 07/19/2021 This 86-year-old woman who was admitted with a fall and multiple fractures is being closely monitored. No chest pain. No palpitations. No fever. The patient is slightly nauseous, complaining of pain. PHYSICAL EXAMINATION: Pulse is 77, blood pressure 115/59, respiration 16. CHEST: Clear to auscultation. CARDIOVASCULAR: S1, S2 muffled. ABDOMEN: Soft NERVOUS SYSTEM: Diffusely weak. LABS: Reviewed. Hemoglobin 10.1. CA-15-3 is 64.1. ASSESSMENT: 1. Fall and fracture of left humerus and left femur, status post intramedullary nailing. 2. Bilateral lung nodules and possibly metastatic malignancy with right breast mass. 3. Elevated CA-15-3. 4. History of rheumatoid arthritis and deformities. 5. Severe pain. 6. Degenerative joint disease. 7. Gait dysfunction. RECOMMENDATIONS AND DISCUSSION: I recommend to continue current medications, continue with the monitoring, symptomatic treatment. Otherwise at this time I would follow closely with multiple consultants. Pain management. Guarded prognosis. Further recommendations to follow. MMODL / IJN: [id number] /
[2021-07-19] MEDS: SODIUM CHLORIDE 0.9% 1,000 ML IV SCH ×2 (17:48→21:22)
[2021-07-19] MEDS ORDERED: VANCOMYCIN IV PER PHARMACY 1 EACH MISC MISCELLANE PRN (20:43)
[2021-07-19] MEDS ORDERED: PIPERACILLIN-TAZOBACTAM 3.375 GM in SODIUM CHLORIDE 0.9% 100 ML IVPB SCH (20:45)
[2021-07-19] MEDS: ACETAMINOPHEN TAB 325 MG TAB PO PRN (21:03)
[2021-07-19] MEDS: SENNOSIDES-DOCUSATE SODIUM 1 EACH TAB PO SCH (21:03)
[2021-07-19] MEDS ORDERED: VANCOMYCIN 1,000 MG in SODIUM CHLORIDE 0.9% 250 ML IVPB STA (21:04)
[2021-07-19 22:42] LABS: Basophils % (A) 0 %; Eosinophils % (A) 0 %; HCT 29.2 % (34.0-46.0); Lymphocytes # (A) 0.8 k/uL (1.0-4.8); Lymphocytes % (A) 22 %; MCH 29.4 pg (25.0-35.0); MCHC 32.1 g/dL (31.0-37.0); MCV 91.4 fL (80.0-100.0); Mean Platelet Volume 8.2; Monocytes # (A) 0.5 k/uL (0-1.0); Monocytes % (A) 14 %; Neutrophils # (A) 2.1 k/uL (1.3-7.7); Neutrophils % (A) 62 %; Platelet Count 216 k/uL (150-450); RDW 14.1 % (11.5-15.5); WBC 3.4 k/uL (3.8-10.6)
[2021-07-19 22:44] LABS: HGB 9.4 gm/dL (11.4-16.0)
[2021-07-20] MEDS: KETOROLAC 15 MG/ML 1 ML VIAL IVP PRN ×3 (02:07→20:43)
[2021-07-20 02:54] LABS: Appearance,Urine Turbid (Clear); Bacteria,Urine Occasional /hpf; Bilirubin,Urine Negative (Negative); Blood,Urine Trace (Negative); Color,Urine Yellow; Glucose,Urine (UA) Negative (Negative); Ketones,Urine Negative (Negative); Leukocyte Esterase,Urine Negative (Negative); Mucus,Urine Rare /hpf; Nitrite,Urine Negative (Negative); PH, Urine 5.5 (5.0-8.0); Protein,Urine Trace (Negative); RBC,Urine 8 /hpf (0-5); Specific Gravity,Urine 1.025 (1.001-1.035); Squamous Epithelial Cell,Urine 1 /hpf (0-4); Uric Acid Crystals,Urine Moderate /hpf; Urobilinogen,Urine <2.0 mg/dL (<2.0); WBC,Urine 2 /hpf (0-5)
[2021-07-20] MEDS: HYDROmorphone 0.5 MG/0.5 ML SYRINGE IVP PRN ×2 (06:04→15:32)
[2021-07-20] MEDS: PIPERACILLIN-TAZOBACTAM 3.375 GM in SODIUM CHLORIDE 0.9% 100 ML IVPB SCH ×3 (06:04→20:40)
[2021-07-20] MEDS: ONDANSETRON 4 MG/2 ML VIAL IVP PRN ×2 (06:04→15:31)
[2021-07-20] MEDS ORDERED: SODIUM CHLORIDE 0.9% 1,000 ML IV ONE (06:12)
--- NOTE | 2021-07-20 07:05 | XR ---
EXAMINATION TYPE: XR chest 1V portable DATE OF EXAM: 07/20/2021 COMPARISON: 07/17/2021 HISTORY: Pain following fall TECHNIQUE: Single frontal view of the chest is obtained. FINDINGS: There are diffuse nodular densities throughout both lungs consistent with metastatic disea se and unchanged compared to previous. Heart size is normal. The pulmonary vasculature is not congest ed. There is no pneumothorax or pleural effusion. The osseous structures are diffusely osteopenic. There is an acute mildly displaced fracture of the left humeral neck and there are chronic rotator cu ff tears of both shoulders IMPRESSION: 1. Acute left humeral fracture. 2. Chronic rotator cuff tears of both shoulders. 3. Diffuse pulmonary metastasis unchanged compared to previous.
[2021-07-20] MEDS: SODIUM CHLORIDE 0.9% 1,000 ML IV SCH ×2 (08:25→20:39)
[2021-07-20] MEDS: PANTOPRAZOLE 40 MG/10 ML VIAL IVP SCH ×2 (08:29→20:39)
[2021-07-20] MEDS: HEPARIN SODIUM,PORCINE/PF 5,000 UNIT/0.5 ML SYRINGE SQ SCH ×2 (08:30→20:39)
--- NOTE | 2021-07-20 09:49 | P.PN ---
Subjective Progress Note Date: 07/20/21 Principal diagnosis: Left hip fracture. Left proximal humerus fracture. Status post hemiarthroplasty left hip. This is a pleasant 78-year-old female who is postop day #2 status post hemiarthroplasty of the left hip. She has no new complaints or concerns today other than some mild nausea.. Vital signs are stable. Objective - Vital Signs Vital signs: Vital Signs Temp 98.9 F 07/20/21 08:00 Pulse 70 07/20/21 08:00 Resp 14 07/20/21 08:00 BP 116/46 07/20/21 08:00 Pulse Ox 90 L 07/20/21 08:00 FiO2 Intake & Output 07/19/21 07/20/21 07/20/21 18:59 06:59 18:59 Output Total 200 230 Balance -200 -230 Output: Urine 200 230 Other: Voiding Method Indwelling Catheter - Exam This is a pleasant 86-year-old female in no acute distress. She is alert and oriented 3. Exam of the upper extremities reveals sling in place on the left arm. Range of motion of the shoulder not tested today. Satisfactory finger motion without difficulty or pain. Exam of the left hip reveals that her dressing is clean, dry and intact. Minimal swelling about the left hip and thigh. Full foot and ankle motion without difficulty or pain. Neurovascular status to the lower extremity is intact. - Labs CBC & Chem 7: 07/19/21 21:36 07/18/21 05:42 Labs: Abnormal Lab Results - Last 24 Hours (Table) 07/19/21 07/19/21 07/20/21 Range/Units 05:42 21:36 02:00 WBC 3.4 L (3.8-10.6) k/uL RBC 3.20 L (3.80-5.40) m/uL Hgb 9.4 L D (11.4-16.0) gm/dL Hct 29.2 L (34.0-46.0) % Lymphocytes # 0.62 L 0.8 L (0.90-5.00) X 10*3/uL Eosinophils # 0 L (0.04-0.35) X 10*3/uL Urine Appearance Turbid H (Clear) Urine Protein Trace H (Negative) Urine Blood Trace H (Negative) Urine RBC 8 H (0-5) /hpf Uric Acid Crystals Moderate H (None) /hpf Urine Bacteria Occasional H (None) /hpf Urine Mucus Rare H (None) /hpf Assessment and Plan (1) Status post-operative repair of closed hip fracture Current Visit: Yes Status: Acute Code(s): Z98.890 - OTHER SPECIFIED POSTPROCEDURAL STATES; Z87.81 - PERSONAL HISTORY OF (HEALED) TRAUMATIC FRACTURE SNOMED Code(s): 556941904 (2) Closed fracture of left proximal humerus Current Visit: Yes Status: Acute Code(s): S42.202A - UNSP FRACTURE OF UPPER END OF LEFT HUMERUS, INIT FOR CLOS FX SNOMED Code(s): 62218347 (3) Fall Current Visit: Yes Status: Acute Code(s): W19.XXXA - UNSPECIFIED FALL, I NITIAL ENCOUNTER SNOMED Code(s): 6252299 (4) Fracture of femoral neck, left Current Visit: Yes Status: Acute Code(s): S72.002A - FRACTURE OF UNSP PART OF NECK OF LEFT FEMUR, INIT SNOMED Code(s): 6579218 Plan: The clinical findings are discussed with the patient. I have changed her pain medication to Ultram. Continue with physical therapy. I anticipate the need for inpatient rehab, likely Wednesday. The patient states that she would like to go home. We will have to see how she does physical therapy.
--- NOTE | 2021-07-20 14:54 | PN ---
PROGRESS NOTE DATE OF SERVICE: 07/19/2021 This 86-year-old woman was admitted with fall and fracture of the humerus, is being closely monitored. Patient had possibly metastatic breast cancer. No chest pain. No palpitations. No fever. PHYSICAL EXAMINATION: Pulse 70, blood pressure 116/47, respiration 14. HEENT: Conjunctivae normal. Neck: No JVD. Cardiovascular: S1, S2 muffled. Respiration: A few scattered rhonchi. Abdomen: Soft. Legs status post surgery. LABS: Hemoglobin 9.4. UA noted. ASSESSMENT: 1. Fall and fracture of the left humerus and left femur, status post intramedullary nailing. 2. Bilateral lung nodules, possibly metastatic malignancy with right breast mass. 3. Elevated CA-15-3. 4. History of rheumatoid arthritis deformities. 5. Severe pain. 6. History of degenerative joint disease. 7. Gait dysfunction. RECOMMENDATIONS AND DISCUSSION: Recommend to continue current medications. Symptomatic treatment. I would also recommend a bone scan. Closely follow with multiple consultants. Prognosis guarded. Further recommendations to follow. MMODL / IJN: [id number] /
[2021-07-20 16:23] LABS: Appearance,Urine Cloudy (Clear); Bacteria,Urine Rare /hpf; Bilirubin,Urine Negative (Negative); Blood,Urine Small (Negative); Calcium Oxalate Crystals,Urine Moderate /hpf; Color,Urine Yellow; Glucose,Urine (UA) Negative (Negative); Ketones,Urine Negative (Negative); Leukocyte Esterase,Urine Negative (Negative); Mucus,Urine Rare /hpf; Nitrite,Urine Negative (Negative); PH, Urine 5.5 (5.0-8.0); Protein,Urine Trace (Negative); RBC,Urine 2 /hpf (0-5); Squamous Epithelial Cell,Urine <1 /hpf (0-4); Urobilinogen,Urine <2.0 mg/dL (<2.0); WBC,Urine <1 /hpf (0-5)
[2021-07-20] MEDS: ASPIRIN 325 MG TAB PO SCH ×2 (16:39→20:39)
[2021-07-20] MEDS: SENNOSIDES-DOCUSATE SODIUM 1 EACH TAB PO SCH (20:39)
[2021-07-20] MEDS: VANCOMYCIN 1,000 MG in SODIUM CHLORIDE 0.9% 250 ML IVPB SCH (20:44)
[2021-07-20] MEDS: ACETAMINOPHEN TAB 325 MG TAB PO PRN (20:44)
[2021-07-20] MEDS ORDERED: TURMERIC ROOT EXTRACT 1500 MG PO SCH (21:00)
[2021-07-20] MEDS ORDERED: TUMERIC 500 MG PO SCH (21:00)
[2021-07-21] MEDS: PIPERACILLIN-TAZOBACTAM 3.375 GM in SODIUM CHLORIDE 0.9% 100 ML IVPB SCH ×3 (05:12→21:24)
[2021-07-21] MEDS: SODIUM CHLORIDE 0.9% 1,000 ML IV SCH ×2 (05:12→14:23)
[2021-07-21] MEDS: KETOROLAC 15 MG/ML 1 ML VIAL IVP PRN (05:13)
--- NOTE | 2021-07-21 07:33 | XR ---
EXAMINATION TYPE: XR chest 1V portable DATE OF EXAM: 07/21/2021 Comparison: 07/20/2021 Clinical History: 86-year-old female cough, r/o pneumonia Findings: Heart is normal in size. Innumerable bilateral pulmonary nodules. Chronic full-thickness bilateral ro tator cuff tears. Acute or subacute surgical neck fracture proximal left humerus. Dextroconvex scolio sis. No mane worsening consolidation identified. There may be a trace right effusion. Impression: 1. Innumerable bilateral pulmonary nodules filling the lungs. Possible trace right effusion. 2. Query acute versus subacute fracture surgical neck, proximal left humerus.
[2021-07-21] MEDS: HEPARIN SODIUM,PORCINE/PF 5,000 UNIT/0.5 ML SYRINGE SQ SCH ×2 (07:40→21:04)
[2021-07-21] MEDS: ASPIRIN 325 MG TAB PO SCH ×2 (07:41→21:24)
[2021-07-21] MEDS: PANTOPRAZOLE 40 MG/10 ML VIAL IVP SCH (07:41)
[2021-07-21 09:37] LABS: Albumin 2.3 g/dL (3.8-4.9); Albumin/Globulin Ratio 0.98 (1.60-3.17); Anion Gap 10.1 mmol/L (10.00-18.00); BUN/Creat Ratio 26.34 Ratio (12.00-20.00); Blood Urea Nitrogen 22.1 mg/dL (9.0-27.0); Calcium 7.8 mg/dL (8.7-10.3); Globulin 2.4 g/dL (1.6-3.3); HCT 22.8 % (37.2-46.3); HGB 6.9 g/dL (12.0-15.0); MCH 28.3 pg (27.0-32.0); MCHC 30.3 g/dL (32.0-37.0); MCV 93.4 fL (80.0-97.0); Mean Platelet Volume 10.7 fL (9.5-12.2); NRBC Per 100 WBC 0 /100 WBCS (0.0-0.0); Non-African American GFR(CKD) 62.1 (60.0-200.0); Platelet Count 139 X 10*3/uL (140-440); Potassium 4.1 mmol/L (3.5-5.5); RBC 2.44 X 10*6/uL (4.10-5.20); RDW 14.1 % (11.5-14.5); Total Bilirubin 0.4 mg/dL (0.30-1.20); Total Protein 4.7 g/dL (6.2-8.2); WBC 2.63 X 10*3/uL (4.50-10.00)
[2021-07-21 09:39] LABS: Basophils # (A) 0.02 X 10*3/uL (0.00-0.10); Basophils % (A) 0.8 %; Eosinophils # (A) 0.09 X 10*3/uL (0.04-0.35); Eosinophils % (A) 3.4 %; Immature Grans, Automated 0.4 %; Lymphocytes # (A) 0.81 X 10*3/uL (0.90-5.00); Lymphocytes % (A) 30.8 %; Monocytes # (A) 0.39 X 10*3/uL (0.20-1.00); Monocytes % (A) 14.8 %; Neutrophils # (A) 1.31 X 10*3/uL (1.80-7.70); Neutrophils % (A) 49.8 %
[2021-07-21 09:40] LABS: Rouleaux PRESENT
[2021-07-21] MEDS: traMADol 50 MG TAB PO PRN ×3 (10:16→21:24)
--- NOTE | 2021-07-21 20:21 | P.PN ---
Subjective Progress Note Date: 07/21/21 Principal diagnosis: Left hip fracture, left proximal humerus fracture This is a pleasant 78-year-old female seen at bedside this am. She is postop day #3 status post hemiarthroplasty of the left hip. She also has a left proximal humerus fracture and has been in sling. She has no new complaints or concerns today. Vital signs are stable. Objective - Vital Signs Vital signs: Vital Signs Temp 98.2 F 07/21/21 08:03 Pulse 80 07/21/21 08:03 Resp 16 07/21/21 08:03 BP 110/49 07/21/21 08:03 Pulse Ox 90 L 07/21/21 08:03 FiO2 Intake & Output 07/20/21 07/21/21 07/21/21 18:59 06:59 18:59 Output Total 475 780 Balance -475 -780 Output: Urine 475 780 Other: Voiding Method Indwelling Catheter Indwelling Catheter Indwelling Catheter # Bowel Movements 0 - Exam Left upper extremity is in sling. NVI throughout Left lower extremity: Inspection reveals a benign surgical wound. There is no active bleeding or drainage. Neurovascular status is intact throughout the lower extremity with motor and sensation fully intact. Calf is soft and nontender. 2+ dorsalis pedis pulse and less than 2 second cap refill is pres ent. - Constitutional General appearance: Present: no acute distress - Labs CBC & Chem 7: 07/21/21 06:27 07/21/21 06:27 Labs: Abnormal Lab Results - Last 24 Hours (Table) 07/20/21 07/21/21 07/21/21 Range/Units 15:26 06:27 06:27 WBC 2.63 L (4.50-10.00) X 10*3/uL RBC 2.44 L (4.10-5.20) X 10*6/uL Hgb 6.9 L* (12.0-15.0) g/dL Hct 22.8 L (37.2-46.3) % MCHC 30.3 L (32.0-37.0) g/dL Plt Count 139 L (140-440) X 10*3/uL Neutrophils # 1.31 L (1.80-7.70) X 10*3/uL Lymphocytes # 0.81 L (0.90-5.00) X 10*3/uL Chloride 114 H (96-109) mmol/L Carbon Dioxide 18.0 L (20.0-27.5) mmol/L BUN/Creatinine Ratio 26.34 H (12.00-20.00) Ratio Calcium 7.8 L (8.7-10.3) mg/dL AST 66 H (13-35) U/L Total Protein 4.7 L (6.2-8.2) g/dL Albumin 2.3 L (3.8-4.9) g/dL Albumin/Globulin Ratio 0.98 L (1.60-3.17) g/dL Urine Appearance Cloudy H (Clear) Urine Protein Trace H (Negative) Urine Blood Small H (Negative) Calcium Oxalate Crystal Moderate H (None) /hpf Urine Bacteria Rare H (None) /hpf Urine Mucus Rare H (None) /hpf Microbiology - Last 24 Hours (Table) 07/19/21 21:36 Blood Culture - Preliminary Blood No Growth after 24 hours Assessment and Plan (1) Closed fracture of left proximal humerus Narrative/Plan: She will continue with routine postop orthopedic protocol including pain management, wound care, PT, DVT prophylaxis and medical management. Expect that she will transfer to home vs ECF in next 1-2 days Current Visit: Yes Status: Acute Priority: Medium Code(s): S42.202A - UNSP FRACTURE OF UPPER END OF LEFT HUMERUS, INIT FOR CLOS FX SNOMED Code(s): 49042544 (2) Fracture of femoral neck, left Current Visit: Yes Status: Acute Priority: Medium Code(s): S72.002A - FRACTURE OF UNSP PART OF NECK OF LEFT FEMUR, INIT SNOMED Code(s): 3003146 Time with Patient: Less than 30
[2021-07-21] MEDS ORDERED: FUROSEMIDE 10 MG/ML 2 ML VIAL IV ONE (21:00)
[2021-07-21] MEDS: SENNOSIDES-DOCUSATE SODIUM 1 EACH TAB PO SCH (21:23)
[2021-07-21] MEDS ORDERED: SODIUM CHLORIDE 0.9% 500 ML 500 ML IV SCH (21:45)
--- NOTE | 2021-07-21 21:46 | P.PN ---
Subjective Progress Note Date: 07/21/21 This is an 86 year old female who is admitted for fall resulting in left hip fracture and left humerus fracture. She is post operative day 3 hemiarthroplasty left hip, left arm is in sling. Patient had underwent chest CTA on admission to rule out pulmonary embolism, which revealed right breast mass with right axilla adenopathy, diffuse pulmonary nodules, and splenic artery aneurysm. There is concern for breast cancer with mets. Patient does have a history of left breast cancer and is status post mastectomy. Follow up chest xray today showing innumerable bilateral pulmonary nodules filling the lungs, with possible trace right effusion. Demonstrates acute vs. subacute fracture left humerus. After dis cussion with patient she has opted to not undergo bone scan and does not wish to pursue any further diagnostics or treatment regarding nodules and concern for breast cancer. She also does not want to go to rehab. Her daughters are going to discuss with patient discharge plan and she potentially will discharge to her daughters house. Hospice was discussed with the patient and daughter and she is not ready for hospice yet, however she does not wish for aggressive treatments at this time. She is currently denying pain in her chest wall or breast. She does report pain about 5/10 concerning her left hip for which she is receiving tramadol, tylenol, and dilaudid for breakthrough pain. Labs today showing hemoglobin of 6.9, patient has refused to receive 1 unit of packed red blood cells, white count 2.63, platelets 139. She is currently receiving aspirin 325 BID for DVT prophylaxis, will repeat hemoglobin tomorrow. Review of Systems Constitutional: Denied any fatigue denied any fever. Cardio vascular: denied any chest pain, palpitations Gastrointestinal: denied any nausea, vomiting, diarrhea Pulmonary: Denied any shortness of breath cough Neurologic denied any new focal deficits All inpatient medications were reviewed and appropriate changes in these medications as dictated in the interval history and assessment and plan. PHYSICAL EXAMINATION: GENERAL: The patient is alert and oriented x3, not in any acute distress. Well developed, well nourished. HEENT: Pupils are round and equally reacting to light. EOMI. No scleral icterus. No conjunctival pallor. Normocephalic, atraumatic. No pharyngeal erythema. No thyromegaly. CARDIOVASCULAR: S1 and S2 present. No murmurs, rubs, or gallops. PULMONARY: Chest is diminished, no wheezing or crackles noted. ABDOMEN: Soft, nontender, nondistended, normoactive bowel sounds. No palpable organomegaly. MUSCULOSKELETAL: No joint swelling or deformity. EXTREMITIES: No cyanosis, clubbing, or pedal edema. NEUROLOGICAL: Gross neurological examination did not reveal any focal deficits. SKIN: No rashes. Assessment and Plan Assessment Mechanical fall with left hip fracture status post left him hemiarthroplasty Left humerus fracture, no surgical repair at this time Postoperative anemia, hgb 6.9 patient has refused blood transfusion at this time Right breast mass with multiple pulmonary nodules concerning for breast cancer with metastasis History of left breast cancer status post mastectomy History of rheumatoid arthritis with deformities History of chronic pain History of degenerative joint disease Gait dysfunction GI Prophylaxis DVT Prophylaxis Plan Patient is postoperative left hip surgical repair, does not want to go to rehab Discharge planning with patients daughters and will follow up tomorrow Can decrease IV fluids to KVO Patient has refused bone scan and further diagnostics regarding breast mass and pulmonary nodules Refused hospice consultation Repeat CBC in AM Continue with arm sling PT/OT consultation Prognosis is poor and patient and family are opting for conservative comfort measures when the time comes. The impression and plan of care has been dictated by Ana Gray Nurse Practitioner as directed. Dr. Dante MD I have performed a history and physical examination and medical decision making of this patient, discussed the same with the dictator, and agree with the dictators assessment and plan as written, documented as a scribe. Based on total visit time, I have performed more than 50% of this visit. Objective - Vital Signs Vital signs: Vital Signs Temp 98.3 F 07/21/21 15:01 Pulse 70 07/21/21 15:01 Resp 16 07/21/21 15:01 BP 113/53 07/21/21 15:01 Pulse Ox 94 L 07/21/21 15:01 FiO2 Intake & Output 07/20/21 07/21/21 07/21/21 18:59 06:59 18:59 Output Total 475 780 400 Balance -475 -780 -400 Output: Urine 475 780 400 Other: Voiding Method Indwelling Catheter Indwelling Catheter Indwelling Catheter # Bowel Movements 0 - Labs CBC & Chem 7: 07/21/21 06:27 07/21/21 06:27 Labs: Abnormal Lab Results - Last 24 Hours (Table) 07/20/21 07/21/21 07/21/21 Range/Units 15:26 06:27 06:27 WBC 2.63 L (4.50-10.00) X 10*3/uL RBC 2.44 L (4.10-5.20) X 10*6/uL Hgb 6.9 L* (12.0-15.0) g/dL Hct 22.8 L (37.2-46.3) % MCHC 30.3 L (32.0-37.0) g/dL Plt Count 139 L (140-440) X 10*3/uL Neutrophils # 1.31 L (1.80-7.70) X 10*3/uL Lymphocytes # 0.81 L (0.90-5.00) X 10*3/uL Chloride 114 H (96-109) mmol/L Carbon Dioxide 18.0 L (20.0-27.5) mmol/L BUN/Creatinine Ratio 26.34 H (12.00-20.00) Ratio Calcium 7.8 L (8.7-10.3) mg/dL AST 66 H (13-35) U/L Total Protein 4.7 L (6.2-8.2) g/dL Albumin 2.3 L (3.8-4.9) g/dL Albumin/Globulin Ratio 0.98 L (1.60-3.17) g/dL Urine Appearance Cloudy H (Clear) Urine Protein Trace H (Negative) Urine Blood Small H (Negative) Calcium Oxalate Crystal Moderate H (None) /hpf Urine Bacteria Rare H (None) /hpf Urine Mucus Rare H (None) /hpf Microbiology - Last 24 Hours (Table) 07/19/21 21:36 Blood Culture - Preliminary Blood No Growth after 24 hours Assessment and Plan Time with Patient: Greater than 30
[2021-07-22] MEDS ORDERED: HYDROcodone/APAP 5-325MG 1 EACH TAB PO PRN (00:06)
[2021-07-22] MEDS: VANCOMYCIN 1,000 MG in SODIUM CHLORIDE 0.9% 250 ML IVPB SCH (00:07)
[2021-07-22] MEDS: PANTOPRAZOLE 40 MG/10 ML VIAL IVP SCH ×2 (00:19→07:57)
[2021-07-22] MEDS: PIPERACILLIN-TAZOBACTAM 3.375 GM in SODIUM CHLORIDE 0.9% 100 ML IVPB SCH ×2 (05:37→13:41)
[2021-07-22] MEDS: ASPIRIN 325 MG TAB PO SCH (07:56)
[2021-07-22] MEDS: HEPARIN SODIUM,PORCINE/PF 5,000 UNIT/0.5 ML SYRINGE SQ SCH (07:56)
[2021-07-22] MEDS: traMADol 50 MG TAB PO PRN ×2 (07:56→16:05)
[2021-07-22 09:15] LABS: HCT 24.7 % (34.0-46.0); Hypochromasia Moderate; MCH 28.4 pg (25.0-35.0); MCHC 30.1 g/dL (31.0-37.0); MCV 94.4 fL (80.0-100.0); Mean Platelet Volume 7.9; Platelet Count 172 k/uL (150-450); RBC 2.61 m/uL (3.80-5.40); RDW 14.1 % (11.5-15.5); WBC 2.9 k/uL (3.8-10.6)
[2021-07-22 09:21] LABS: HGB 7.4 gm/dL (11.4-16.0)
--- NOTE | 2021-07-22 11:15 | P.PN ---
Subjective Progress Note Date: 07/22/21 This patient is an 86-year-old female who is status-post left hip hemiarthroplasty on 07/18/21. She is also being followed for a left proximal humerus fracture that is being managed non-operatively. Today is post-operative day #4. Patient is seen and examined bedside this morning. Patient states the pain in her left hip is well-controlled at this time. Patient was able to work with physical therapy yesterday. Hemoglobin resulted as 6.9 yesterday and patient refused a transfusion. Patient has no new complaints at this time. Per nursing, the patient has decided to go to rehab at discharge. Objective - Vital Signs Vital signs: Vital Signs Temp 98.5 F 07/22/21 08:15 Pulse 83 07/22/21 08:15 Resp 17 07/22/21 08:15 BP 126/68 07/22/21 08:15 Pulse Ox 90 L 07/22/21 08:15 FiO2 Intake & Output 07/21/21 07/22/21 07/22/21 18:59 06:59 18:59 Intake Total 480 Output Total 400 650 Balance 80 -650 Intake: Oral 480 Output: Urine 400 650 Other: Voiding Method Indwelling Catheter Indwelling Catheter - Exam On examination, the patient is sitting up in bed in no apparent distress. She is alert and oriented 3. On inspection of her left hip, there is a clean, dry, intact dressing in place. No bleeding or drainage the dressing. There is mild swelling of the thigh, the thigh soft and compressible. Patient has good strength and range of motion of the left ankle and toes. Motor and sensory function is intact of the left lower extremity. The dorsalis pedis pulses easily palpable, the left lower extremities warm and well perfused. Calf is soft and nontender to palpation. On inspection of the left upper extremity, the extremity is immobilized in a sling. On inspection of the left shoulder, there is diffuse swelling. No open wounds or lacerations. There is diffuse pain on palpation of the left shoulder. Motor and sensory function is intact of the left upper extremity. Radial pulses easily palpable, the left upper extremity is warm and well perfused with brisk capillary refill distally. - Labs CBC & Chem 7: 07/22/21 08:48 07/21/21 06:27 Labs: Abnormal Lab Results - Last 24 Hours (Table) 07/21/21 07/22/21 Range/Units 19:35 08:48 WBC 2.9 L (3.8-10.6) k/uL RBC 2.61 L (3.80-5.40) m/uL Hgb 7.4 L D (11.4-16.0) gm/dL Hct 24.7 L (34.0-46.0) % MCHC 30.1 L (31.0-37.0) g/dL Crossmatch See Detail Microbiology - Last 24 Hours (Table) 07/19/21 21:36 Blood Culture - Preliminary Blood No Growth after 48 hours Assessment and Plan Assessment: Status-post left hip hemiarthroplasty on 07/21/21. Post-operative day #4. Left proximal humerus fracture, non-operative. Plan: - Patient may continue to weight-bear to tolerance on the left lower extremity. Up with assistance, with a walker. - Keep left upper extremity immobilized in sling for comfort. - Pain management as needed. - Physical therapy for gait and balance training. - Aspirin 325 mg BID for DVT prophylaxis. - Internal medicine following for preoperative medical management. - Anticipate discharge to [facility]. We will follow patient closely while she remains inpatient.
--- NOTE | 2021-07-22 11:26 | CDI ---
Documentation Clarification Form Date: 07/22/2021 10:53:21 AM From: Adrianna Verma CCS, CCDs Admit Date: 07/17/2021 02:17:00 PM Patient Name: Susan Jaeger Visit Number: [id number] Discharge Date: ATTENTION: The Clinical Documentation Specialists (CDI) and [facility] Coding Staff appreciate your assistance in clarifying documentation. Please respond to the clarification below the line at the bottom and electronically sign. The CDI & [facility] Coding staff will review the response and follow-up if needed. Please note: Queries are made part of the Legal Health Record. If you have any questions, please contact the author of this message via ITS. Dr. Jose Miguel Howell: Postoperative Anemia with Hemoglobin 6.9 is documented in the 07/21 Attending Physician Progress Note without further specificity. Additional specificity regarding the Type & Acuity of Anemia requested. History/Risk Factors per the 07/17 H/P: DJD, Rheumatoid Arthritis, Left Breast Cancer status post Mastectomy, bilateral knee surgery & right hip surgery nos. Clinical indicators: Presented to the ED on 07/17 via EMS after a mechanical fall onto her left side, complaining of left shoulder & left hip pain. Admit with Left Hip Fracture, Left Humerus Fracture and concerns for Metastatic Cancer to the Right Breast. Hemoglobin: 07/17 12.1. 07/18: 11.3. 07/19: 10.1, 9.4. 07/21: 6.9. 6.7 7.4 Hematocrit: 07/17: 38.4. 07/18: 36.6. 07/19: 32.7, 29.2. 07/21: 22.8. 07/22: 24.7 Treatment 07/17: IV Zofran 4 mg x1, IV Fentanyl 50 mcg x1, IV Dilaudid 0.5 mg q3H/prn, IV Zofran 4 mg q8H/prn, po Mingus, IV Protonix 40 mg BID. 07/18: Left hip hemiarthroplasty. IV Na Chloride as directed, IV Lactated Ringers as directed, IV Zofran , IV Benadryl, IV Dilaudid 0.5 x2, IV Toradol 15 mg q6H/prn. 07/19: IV Cefazolin 50 mls @ 100 mls/hr q8H, po Ultram 50 mg QID/prn, IV Zofran 4 mg q6H/prn, IV Dilaudid 0.25 q3H/prn, IV Zosyn 100 mls @ 25 mls/hr q6H, IV Vancomycin 250 mls @ 125 mls/hr x1, IV Na Chloride 1,000 mls @ 100 mls/hr q10H. 6/5: IV Zosyn, IV Na Chl 1,000 mls @ 999 mls/hr q1H, IV Vancomycin 125 mls/hr q24H. *Patient is refusing a blood transfusion. Please clarify the type and acuity of anemia: [ ] Acute blood loss anemia [ ] ABLA is a complication of the patient's surgery [x ] ABLA is an expected outcome of the patient's surgery [ ] ABLA is not a complication of the patient's surgery and is related to co-morbid condition(s), please specify: [ ] Hemolytic anemia [ ] Drug induced anemia [ ] Anemia due to chronic disease, please specify: [ ] Unable to determine [ ] Other, please specify (Template Last Revised: March 2020) MTDD
--- NOTE | 2021-07-22 12:27 | P.DS ---
Providers Date of admission: 07/17/21 14:17 Attending physician: Ann Hartley Consults: 07/17/21 13:53 Consult Physician Urgent Consulting Provider: Juan Alberto Roberson Consult Reason/Comments: Left hip fracture, left humerus fracture Do you want consulting provider notified?: Yes Consult Physician Urgent Consulting Provider: José Manuel Garcia Consult Reason/Comments: Probable metastatic cancer Do you want consulting provider notified?: Yes 07/17/21 16:44 Consult Physician Routine Consulting Provider: José Manuel Garcia Consult Reason/Comments: malignancy?? Do you want consulting provider notified?: Yes Primary care physician: Elizabeth Yap Hospital Course: Final Diagnosis Mechanical fall with left hip fracture status post left him hemiarthroplasty Left humerus fracture, no surgical repair at this time Anemia found postoperatively, no history of anemia noted, no evidence for acute bleeding, hgb 7.4 today, did not receive blood transfusion Right breast mass with multiple pulmonary nodules concerning for breast cancer with metastasis History of left breast cancer status post mastectomy History of rheumatoid arthritis with deformities History of chronic pain History of degenerative joint disease Gait dysfunction Discharge Disposition Patient is stable for discharge to rehab today, she has a guarded prognosis as she does not wish for any further diagnostics or treatment regarding right breast mass with possible metastasis. Hgb has improved up to 7.4 without blood transfusion, no evidence for acute bleeding. Hospital Course This is an 86 year old female who is admitted for fall resulting in left hip fracture and left humerus fracture. She is post operative day 3 hemiarthroplasty left hip, left arm is in sling. D-dimer on admission 30.14, Patient had underwent chest CTA to rule out pulmonary embolism, which revealed right breast mass with right axilla adenopathy, diffuse pulmonary nodules, and splenic artery aneurysm. No evidence for pulmonary embolism. There is concern for breast cancer with mets. Patient does have a history of left breast cancer and is status post mastectomy. Follow up chest xray today showing innumerable bilateral pulmonary nodules filling the lungs, with possible trace right effusion. Demonstrates acute vs. subacute fracture left humerus. After discussion with patient she has opted to not undergo bone scan and does not wish to pursue any further diagnostics or treatment regarding nodules and concern for breast cancer. Hospice was discussed with the patient and daughter and she is not ready for hospice yet, however she does not wish for aggressive treatments at this time. Hemoglobin was found to be 6.9 with no concerns for acute bleeding and she did not want blood transfusion, hemoglobin improved up to 7.4. She has been cleared by orthopedics for discharge to rehab. Follow up in the office and follow up with PCP. 07/22/2021 Patient evaluated today sitting up in the chair with her daughter at the bedside. Patient has decided to go to rehab for 1 week prior to returning home. She is denying chest pain, shortness of breath. She has pain 3/10 to her Left hip dull ache and also has some pain to her left arm. She continues with arm sling. No numbness or tingling noted left upper or lower extremity. She denies nausea, vomiting, or diarrhea. She is tolerating diet. She has indwelling catheter in place. Can be removed prior to discharge to rehab or can complete voiding trial at rehab. She is ambulating to restroom. Lungs are clear, S1 S2 auscultated, abdomen is soft and nontender, she has no peripheral edema. +2 peripheral pulses. She is 93% on room air, blood pressure 126/68. Additional labs today showing white count 2.9, hgb 7.4, platelets 172. Yesterday sodium 136, potassium 4.1. Please see medication reconciliation for a list of medications. Thank you for allowing us to participate in the care of this patient. The impression and plan of care has been dictated by Ana Gray, Nurse Practitioner as directed. Dr. Dante MD I have performed a history and physical examination and medical decision making of this patient, discussed the same with the dictator, and agree with the dictators assessment and plan as written, documented as a scribe. Based on total visit time, I have performed more than 50% of this visit. Patient Condition at Discharge: Poor Plan - Discharge Summary Discharge Rx Participant: Yes New Discharge Prescriptions: New Aspirin 325 mg PO BID #60 tab Sennosides-Docusate Sodium [Senokot-S] 1 tab PO BID #60 tablet traMADol HCL [Ultram] 50 mg PO Q6HR PRN #28 tab PRN Reason: Pain Acetaminophen Tab [Tylenol] 650 mg PO Q6HR PRN tab PRN Reason: Fever And/ Or Pain Continue Zinc 50 mg PO DAILY Cholecalciferol (Vitamin D3) [Vitamin D3 (3000 Iu)] 75 mcg PO DAILY Ascorbic Acid [Vitamin C] 1,000 mg PO DAILY Turmeric Root Extract [Turmeric] 500 mg PO DAILY Discharge Medication List Ascorbic Acid [Vitamin C] 1,000 mg PO DAILY 07/17/21 [History] Cholecalciferol (Vitamin D3) [Vitamin D3 (3000 Iu)] 75 mcg PO DAILY 07/17/21 [History] Turmeric Root Extract [Turmeric] 500 mg PO DAILY 07/17/21 [History] Zinc 50 mg PO DAILY 07/17/21 [History] Aspirin 325 mg PO BID #60 tab 07/20/21 [Rx] Sennosides-Docusate Sodium [Senokot-S] 1 tab PO BID #60 tablet 07/20/21 [Rx] traMADol HCL [Ultram] 50 mg PO Q6HR PRN #28 tab 07/20/21 [Rx] Acetaminophen Tab [Tylenol] 650 mg PO Q6HR PRN tab 07/22/21 [Rx] Follow up Appointment(s)/Referral(s): Elizabeth Yap DO [Primary Care Provider] - 1-2 days Juan Alberto Roberson DO [Doctor of Osteopathic Medicine] - 3 Weeks Ambulatory/Diagnostic Orders: Complete Blood Count w/diff [LAB.AMB] Time Frame: 2 Days, Location: None Selected Activity/Diet/Wound Care/Special Instructions: May bear weight as tolerated with walker. Keep Optifoam dressing intact 1 week post op. Monitor for signs of bleeding Recheck hemoglobin in 2 days Discharge Disposition: TRANSFER TO SNF/ECF
[2021-07-22 14:27] VITALS: BP 149/74; PULSE 77; RESP 18; TEMP 98.2
--- NOTE | 2021-07-22 18:02 | P.PN ---
Subjective Progress Note Date: 07/22/21 Principal diagnosis: hip fracture In follow-up today patient was assisted to a chair, she is doing very well postop Objective - Vital Signs Vital signs: Vital Signs Temp 98.2 F 07/22/21 14:27 Pulse 77 07/22/21 14:27 Resp 18 07/22/21 14:27 BP 149/74 07/22/21 14:27 Pulse Ox 91 L 07/22/21 14:27 FiO2 Intake & Output 07/21/21 07/22/21 07/22/21 18:59 06:59 18:59 Intake Total 480 Output Total 400 650 Balance 80 -650 Intake: Oral 480 Output: Urine 400 650 Other: Voiding Method Indwelling Catheter Indwelling Catheter - Constitutional General appearance: Present: average body habitus, no acute distress - EENT Eyes: Present: anicteric sclerae, EOMI ENT: Present: hearing grossly normal - Psychiatric Psychiatric: Present: A&O x's 3, appropriate affect, intact judgment & insight - Labs CBC & Chem 7: 07/22/21 08:48 07/21/21 06:27 Labs: Abnormal Lab Results - Last 24 Hours (Table) 07/21/21 07/22/21 Range/Units 19:35 08:48 WBC 2.9 L (3.8-10.6) k/uL RBC 2.61 L (3.80-5.40) m/uL Hgb 7.4 L D (11.4-16.0) gm/dL Hct 24.7 L (34.0-46.0) % MCHC 30.1 L (31.0-37.0) g/dL Crossmatch See Detail Microbiology - Last 24 Hours (Table) 07/19/21 21:36 Blood Culture - Preliminary Blood No Growth after 48 hours Assessment and Plan (1) Fracture of femoral neck, left Status: Acute Priority: Medium Code(s): S72.002A - FRACTURE OF UNSP PART OF NECK OF LEFT FEMUR, INIT SNOMED Code(s): 5492999 (2) Mass of right breast Status: Acute Priority: Medium Code(s): N63.10 - UNSPECIFIED LUMP IN THE RIGHT BREAST, UNSPECIFIED QUADRANT SNOMED Code(s): 35902951 Plan: patient made it very clear to me today that she is not interested in pursuing any treatment for cancer. She does not care if it is a hormone pill with few to no side effects or not, she does not want to pursue any treatment for cancer. Nursing also reported that patient refused a unit of blood for hemoglobin of 6.9. Per patient wishes, no follow-up with Oncology.
[2021-07-22] MEDS ORDERED: VANCOMYCIN TROUGH DUE 1 EACH MISC MISCELLANE ONE (21:00)
== END 2021-07-22 17:04 | DRG 522 ==
LOC: EC 12:02 → 4SSUR 14:17
PROVIDERS: ADMIT Hospitalist; ATTEND Hospitalist
PROC: 0SRS01A Replacement of Left Hip Joint, Femoral Surface with Metal Synthetic Substitute, Uncemented, Open Approach (ICD-10-PCS; principal; 2021-07-18 08:25)
DX: S72.032A Displaced midcervical fracture of left femur, initial encounter for closed fracture (principal); S42.212A Unspecified displaced fracture of surgical neck of left humerus, initial encounter for closed fracture; D62 Acute posthemorrhagic anemia; C79.81 Secondary malignant neoplasm of breast; Z20.822 Contact with and (suspected) exposure to COVID-19; M06.9 Rheumatoid arthritis, unspecified; M19.90 Unspecified osteoarthritis, unspecified site; G89.29 Other chronic pain; R11.0 Nausea; R91.8 Other nonspecific abnormal finding of lung field; W18.30XA Fall on same level, unspecified, initial encounter; Y92.099 Unspecified place in other non-institutional residence as the place of occurrence of the external cause; Z85.3 Personal history of malignant neoplasm of breast; Z90.12 Acquired absence of left breast and nipple; Z96.653 Presence of artificial knee joint, bilateral
CPT/HCPCS: 36415; 51702; 71045; 71275; 73501; 73502; 80053; 80202; 81001; 82565; 84484; 85025; 85027; 85379; 85610; 85652; 85730; 86038; 86300; 86431; 86850; 86900; 86901; 87040; 87635; 88305; 88311; 88341; 88342; 96374; 96375; 99285